=== PATIENT | female | born 1960 ===

== ENCOUNTER 2020-05-24 10:17 | Day surgery (SDC) | payer MEDICAID ==
[~2020-05-24] VITALS: Ht 167.6 cm; Wt 62.7 kg
[~2020-05-24 10:17] MED LIST: ALBU8HFA PO; ASPI-611 PO; LEVO50TA66 PO
[2020-05-24] MEDS ORDERED: MIDAZolam 5mg/5ml vial ONE (10:31)
[2020-05-24] MEDS ORDERED: fentaNYL/PF 50MCG/1 ML 2ML syringe ONE (10:31)
[2020-05-24 10:35] VITALS: BP 95/69
[2020-05-24 11:18] VITALS: BP 114/64
[2020-05-24 11:28] VITALS: BP 106/61
[2020-05-24 11:38] VITALS: BP 114/63
[2020-05-24 11:48] VITALS: BP 119/73
[2020-05-25] MEDS ORDERED: NITR100C6 PO (18:32)
[2020-05-25] MEDS ORDERED: CEPH250T PO (19:31)
== END 2020-05-24 12:18 | disposition home or self-care (01) ==
LOC: GI LAB 10:17
PROVIDERS: ATTEND Internal Medicine Gastroenterology
DX: Z12.11 Encounter for screening for malignant neoplasm of colon (principal); D12.2 Benign neoplasm of ascending colon; D12.3 Benign neoplasm of transverse colon; K64.8 Other hemorrhoids; Z86.010 Personal history of colon polyps; F17.210 Nicotine dependence, cigarettes, uncomplicated
CPT/HCPCS: 45380; 45385; 99152; 99153; C1773; J2250; J3010; J7040; A4620

== ENCOUNTER 2020-05-25 14:21 | Emergency (ER) | payer MEDICAID ==
[~2020-05-25] VITALS: Ht 170.2 cm; Wt 62.7 kg
[2020-05-25 15:35] LABS: BASOPHILS % (AUTO) 0.3 % (0-1); EOSINOPHILS # (AUTO) 0.1 X10'3 (0-0.9); EOSINOPHILS % (AUTO) 0.9 % (0-6); HEMATOCRIT 39.5 % (35.0-45.0); HEMOGLOBIN 13.2 g/dl (12.0-16.0); LYMPHOCYTES # (AUTO) 2.2 X10'3 (1.1-4.8); LYMPHOCYTES % (AUTO) 25.2 % (21-51); MEAN CORPUSCULAR HEMOGLOBIN 30.5 PG (27.0-31.0); MEAN CORPUSCULAR HGB CONC 33.4 g/dL (33.0-36.5); MEAN CORPUSCULAR VOLUME 91.4 FL (78-98); MEAN PLATELET VOLUME 8.3 FL (7.4-10.4); MONOCYTES # (AUTO) 0.4 X10'3 (0-0.9); MONOCYTES % (AUTO) 5.2 % (2-12); NEUTROPHILS # (AUTO) 5.9 X10'3 (1.8-7.7); NEUTROPHILS % (AUTO) 68.4 % (42-75); PLATELET COUNT 315 X10'3 (140-440); RED BLOOD COUNT 4.32 X10'6 (4.20-5.60); WHITE BLOOD COUNT 8.7 X10'3 (4.5-11.0)
[2020-05-25 15:51] LABS: ALANINE AMINOTRANSFERASE 25 U/L (12-78); ALBUMIN 3.9 G/DL (3.4-5.0); ALBUMIN/GLOBULIN RATIO 1.1 (1.1-1.5); ALKALINE PHOSPHATASE 99 IU/L (46-116); ANION GAP 9 (8-16); ASPARTATE AMINO TRANSFERASE 20 U/L (10-37); BILIRUBIN,TOTAL 0.4 MG/DL (0.1-1.0); BLOOD UREA NITROGEN 7 MG/DL (7-18); BUN/CREATININE RATIO 7.4 (6.6-38.0); CALCIUM 9.1 MG/DL (8.5-10.1); CHLORIDE 101 MMOL/L (99-107); CREATININE 0.94 MG/DL (0.40-0.90); GLUCOSE 101 MG/DL (70-104); LIPASE 100 U/L (73-393); POTASSIUM 3.9 MMOL/L (3.5-5.1); SODIUM 138 MMOL/L (135-145); TOTAL CARBON DIOXIDE 27.8 MMOL/L (24-32); TOTAL PROTEIN 7.6 G/DL (6.4-8.2); eGFR 61 ML/MIN
[2020-05-25 17:59] LABS: CLARITY,URINE CLEAR (Clear); COLOR,URINE STRAW (Yellow); GLUCOSE, URINE NEGATIVE (Neg); KETONES,URINE NEGATIVE (Neg); LEUKOCYTE ESTERASE ,URINE MODERATE (Neg); NITRITES, URINE NEGATIVE (Neg); OCCULT BLOOD,URINE TRACE-INTACT (Neg); PH,URINE 6.5 (4.8-8.0); PROTEIN,URINE NEGATIVE (Neg); UROBILINOGEN,URINE 0.2 E.U/dL (0.2-1.0)
[2020-05-25 18:01] LABS: UA COLLECTION TYPE CLN CATCH MIDSTREAM
[2020-05-25 18:22] LABS: RBC,URINE 0-2 /HPF (0-2)
[2020-05-25 18:23] LABS: BACTERIA,URINE 1+ /HPF (Neg); SQUAMOUS EPITHELIAL CELL,UR FEW /LPF (FEW)
[2020-05-25] MEDS ORDERED: NITR100C6 PO (18:32)
[2020-05-25 18:49] VITALS: BP 130/76
[2020-05-25] MEDS ORDERED: CEPH250T PO (19:31)
== END 2020-05-25 18:50 | disposition home or self-care (01) ==
LOC: ER 14:22
DX: N39.0 Urinary tract infection, site not specified (principal); R42 Dizziness and giddiness; R06.02 Shortness of breath; R10.9 Unspecified abdominal pain; F17.200 Nicotine dependence, unspecified, uncomplicated; Z88.0 Allergy status to penicillin; Z88.1 Allergy status to other antibiotic agents; Z88.5 Allergy status to narcotic agent; Z91.018 Allergy to other foods; Z79.899 Other long term (current) drug therapy
CPT/HCPCS: 36415; 80053; 81001; 83690; 85025; 87088; 93005; 99284